=== PATIENT | female | born 2000 | race Caucasian/White ===

== ENCOUNTER → 2019-01-17 | Emergency (ER) | payer BC, OTHER ==
[~2019-01-17] VITALS: Ht 157.5 cm; Wt 81.6 kg
[~2019-01-17] MED LIST: ACHD5005 PO; KETO10TA PO; KETOROLAC 30 MG/ML VIAL IVP ONE; NS IV 1000 ML 1,000 ML IV ONE; ONDANSETRON 4 MG/2 ML (SDV) Z0FRAN IVP ONE; ONDN4T PO; PHEN-640 PO; SULF1TAB35 PO; TAMS0.4C98 PO; fentaNYL INJECTION 100 MCG/2 ML AMP IVP ONE
--- NOTE | 2019-01-17 10:39 | NUR ---
NOTIFIED PT WOULD LIKE SOMETHING FOR NAUSEA AND PAIN.
[2019-01-17 10:44] LABS: BASOPHILS % (AUTO) 1 % (0-10); EOSINOPHILS # (AUTO) 0.1 10^3/uL (0.0-0.3); EOSINOPHILS % (AUTO) 2 % (0-10); HEMATOCRIT 44 % (35-52); HEMOGLOBIN 14.7 G/DL (11.5-16.0); LYMPHOCYTES # (AUTO) 2.4 X 10^3 (1.0-4.0); LYMPHOCYTES % (AUTO) 44 % (12-44); MEAN CORPUSCULAR HEMOGLOBIN 30 PG (25-34); MEAN CORPUSCULAR HGB CONC 34 G/DL (32-36); MEAN CORPUSCULAR VOLUME 88 FL (80-99); MEAN PLATELET VOLUME 10.5 FL (7.4-10.4); MONOCYTES # (AUTO) 0.5 X 10^3 (0.0-1.0); MONOCYTES % (AUTO) 10 % (0-12); NEUTROPHILS # (AUTO) 2.4 X 10^3 (1.8-7.8); NEUTROPHILS % (AUTO) 43 % (42-75); PLATELET COUNT 343 10^3/uL (130-400); RED CELL DISTRIBUTION WIDTH 13.3 % (10.0-14.5); WHITE BLOOD COUNT 5.5 10^3/uL (4.3-11.0)
[2019-01-17 11:11] LABS: ALANINE AMINOTRANSFERASE 29 U/L (0-55); ALBUMIN 4.6 GM/DL (3.2-4.5); ALKALINE PHOSPHATASE 62 U/L (40-136); BILIRUBIN,TOTAL 0.9 MG/DL (0.1-1.0); BUN/CREATININE RATIO 9; CALCIUM 10.4 MG/DL (8.5-10.1); CARBON DIOXIDE 19 MMOL/L (21-32); CHLORIDE 106 MMOL/L (98-107); CREATININE SERUM 0.77 MG/DL (0.60-1.30); GFR ESTIMATED > 60; GLUCOSE 97 MG/DL (70-105); SODIUM 142 MMOL/L (135-145); TOTAL PROTEIN 7.6 GM/DL (6.4-8.2)
[2019-01-17 11:13] LABS: POTASSIUM 3.8 MMOL/L (3.6-5.0)
[2019-01-17 11:25] LABS: CLARITY,URINE SLIGHTLY CLOUDY; COLOR,URINE AMBER; GLUCOSE, URINE (UA) NEGATIVE (NEGATIVE); KETONES,URINE 4+ (NEGATIVE); LEUKOCYTE ESTERASE ,URINE 3+ (NEGATIVE); NITRITE,URINE POSITIVE (NEGATIVE); PH,URINE 5 (5-9); PROTEIN,URINE 3+ (NEGATIVE); UROBILINOGEN,URINE 4 MG/DL (NORMAL)
--- NOTE | 2019-01-17 11:32 | ED Abdominal Pain ---
General Chief Complaint: Abdominal/GI Problems Stated Complaint: RIGHT FLANK PAIN Nursing Triage Note: ARRIVED VIA AMB TO ROOM 09. COMPLAINS OF RIGHT SIDED FLANK PAIN THAT STARTED THIS AM. Source of Information: Patient Exam Limitations: No Limitations History of Present Illness Date Seen by Provider: Jan 17, 2019 Time Seen by Provider: 10:50 Initial Comments 18 year old female who presents to the emergency room with complains of right sided flank pain, nausea, and vomiting that started at 0830 this morning. 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 Timing/Duration: 4-6 Hours Severity/Quality: Sharp, Stabbing Location: Flank (right) Radiation: No Radiation Associated Symptoms: Nausea/Vomiting Allergies and Home Medications Allergies Coded Allergies: No Known Drug Allergies (Unverified , 01/17/19) Home Medications Hydrocodone Bit/Acetaminophen 1 Tab Tab, 1 EACH PO Q6H PRN for PAIN-MODERATE Prescribed by: ABILIO GARCIA on 01/17/19 1201 Ondansetron HCl 4 Mg Tab, 4 MG PO Q4H PRN for NAUSEA/VOMITING-1ST LINE Prescribed by: ABILIO GARCIA on 01/17/19 1201 Sulfamethoxazole/Trimethoprim 1 Each Tablet, 1 EACH PO BID Prescribed by: ABILIO GARCIA on 01/17/19 1201 Patient Home Medication List Home Medication List Reviewed: Yes Review of Systems Review of Systems Constitutional: see HPI; No chills, No fever Gastrointestinal: See HPI, Nausea Genitourinary: See HPI, Flank Pain All Other Systems Reviewed Negative Unless Noted: Yes Past Voqagut-Gntlox-Ganxwk Hx Past Med/Social Hx: Reviewed Nursing Past Med/Soc Hx Patient Social History Recent Foreign Travel: No Contact w/Someone Who Travel: No Recent Infectious Disease Expo: No Recent Hopitalizations: No Seasonal Allergies Seasonal Allergies: No Past Medical History Surgeries: Yes (GASTRIC SLEEVE) Respiratory: No Cardiac: No Neurological: No Female Reproductive Disorders: Polycystic Ovarian Dis Genitourinary: No Gastrointestinal: No Musculoskeletal: No Endocrine: No HEENT: No Cancer: No Family Medical History Reviewed Nursing Family Hx Physical Exam Vital Signs Vital Signs - First Documented 01/17/19 01/17/19 10:20 12:20 Temp 98.0 Pulse 78 Resp 16 B/P (MAP) 138/98 Pulse Ox 98 O2 Delivery Room Air Capillary Refill : Height/Weight/BMI Height: 5'2.00" Weight: 180lbs. oz. 81.226205lm; 28.12 BMI Method:Stated General Appearance: WD/WN, no apparent distress Respiratory: chest non-tender, lungs clear, normal breath sounds, no respiratory distress, no accessory muscle use Cardiovascular: normal peripheral pulses, regular rate, rhythm, no edema, no gallop, no JVD, no murmur Gastrointestinal: normal bowel sounds, non tender, soft, no organomegaly, no pulsatile mass Back: normal inspection, no vertebral tenderness, CVA tenderness (R) Neurologic/Psychiatric: alert, normal mood/affect, oriented x 3 Skin: normal color, warm/dry Progress/Results/Core Measures Results/Orders Lab Results Laboratory Tests Test 01/17/19 10:40 01/17/19 11:20 Range/Units White Blood Count 5.5 4.3-11.0 10^3/uL Red Blood Count 4.93 4.35-5.85 10^6/uL Hemoglobin 14.7 11.5-16.0 G/DL Hematocrit 44 35-52 % Mean Corpuscular Volume 88 80-99 FL Mean Corpuscular Hemoglobin 30 25-34 PG Mean Corpuscular Hemoglobin Concent 34 32-36 G/DL Red Cell Distribution Width 13.3 10.0-14.5 % Platelet Count 343 130-400 10^3/uL Mean Platelet Volume 10.5 H 7.4-10.4 FL Neutrophils (%) (Auto) 43 42-75 % Lymphocytes (%) (Auto) 44 12-44 % Monocytes (%) (Auto) 10 0-12 % Eosinophils (%) (Auto) 2 0-10 % Basophils (%) (Auto) 1 0-10 % Neutrophils # (Auto) 2.4 1.8-7.8 X 10^3 Lymphocytes # (Auto) 2.4 1.0-4.0 X 10^3 Monocytes # (Auto) 0.5 0.0-1.0 X 10^3 Eosinophils # (Auto) 0.1 0.0-0.3 10^3/uL Basophils # (Auto) 0.0 0.0-0.1 10^3/uL Sodium Level 142 135-145 MMOL/L Potassium Level 3.8 3.6-5.0 MMOL/L Chloride Level 106 98-107 MMOL/L Carbon Dioxide Level 19 L 21-32 MMOL/L Anion Gap 17 H 5-14 MMOL/L Blood Urea Nitrogen 7 7-18 MG/DL Creatinine 0.77 0.60-1.30 MG/DL Estimat Glomerular Filtration Rate > 60 BUN/Creatinine Ratio 9 Glucose Level 97 70-105 MG/DL Calcium Level 10.4 H 8.5-10.1 MG/DL Corrected Calcium 8.5-10.1 MG/DL Total Bilirubin 0.9 0.1-1.0 MG/DL Aspartate Amino Transf (AST/SGOT) 26 5-34 U/L Alanine Aminotransferase (ALT/SGPT) 29 0-55 U/L Alkaline Phosphatase 62 40-136 U/L Total Protein 7.6 6.4-8.2 GM/DL Albumin 4.6 H 3.2-4.5 GM/DL Serum Test, Qualitative NEGATIVE NEGATIVE Urine Color MALORIE H Urine Clarity SLIGHTLY CLOUDY Urine pH 5 5-9 Urine Specific Clear 1.030 H 1.016-1.022 Urine Protein 3+ H NEGATIVE Urine Glucose (UA) NEGATIVE NEGATIVE Urine Ketones 4+ H NEGATIVE Urine Nitrite POSITIVE H NEGATIVE Urine Bilirubin 2+ H NEGATIVE Urine Urobilinogen 4 H NORMAL MG/DL Urine Leukocyte Esterase 3+ H NEGATIVE Urine RBC (Auto) 5+ H NEGATIVE Urine RBC TNTC H /HPF Urine WBC 5-10 H /HPF Urine Squamous Epithelial Cells 5-10 /HPF Urine Crystals NONE /LPF Urine Bacteria FEW H /HPF Urine Casts NONE /LPF Urine Mucus NEGATIVE /LPF Urine Culture Indicated YES Micro Results Microbiology 01/17/19 Urine Culture - Final, 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 My Orders Orders - ABILIO GARCIA Fentanyl Injection (Sublimaze Injection (01/17/19 11:15) Ketorolac Injection (Toradol Injection) (01/17/19 11:15) Ct Abd/Pelvis Wo(Kidney Stone) (01/17/19 11:03) Abdomen/Kub 1view (01/17/19 11:03) Saline Lock/Iv-Start (01/17/19 11:03) Ns Iv 1000 Ml (Sodium Chloride 0.9%) (01/17/19 11:03) Hcg,Qualitative Serum (01/17/19 11:14) Iv Push Sped Teacher Ed (01/17/19 ) Medications Given in ED Vital Signs/I&O 01/17/19 01/17/19 10:20 12:20 Temp 98.0 Pulse 78 78 Resp 16 16 B/P (MAP) 138/98 Pulse Ox 98 O2 Delivery Room Air Room Air Progress Progress Note : Time: 11:57 Progress Note I have seen and evaluated the patient. I have informed her of her laboratory and imaging studies. She agrees with plan of care, plans for follow up, return precautions were given. Diagnostic Imaging Diagonstic Imaging: Xray, CT Plain Films/CT/US/NM/MRI: abdomen, pelvis Comments [facility], [place] NAME: ANA PAULA [facility] REC#: [id number] PT STATUS: REG ER : 2000 PHYSICIAN: ABILIO GARCIA ADMIT DATE: 01/17/19/ER Draft Date of Exam:01/17/19 CT ABD/PELVIS WO(KIDNEY STONE) PROCEDURE: CT urinary tract, rule out kidney stone. TECHNIQUE: Multiple contiguous axial images were obtained through the abdomen and pelvis without the use of intravenous contrast. INDICATION: Hematuria with nausea and vomiting and right posterior pain. COMPARISON: No prior studies are available for comparison. FINDINGS: The lung bases are clear. The liver and spleen are unremarkable. There is no biliary duct dilatation. Pancreas and spleen are unremarkable. No adrenal mass is detected. There are punctate nonobstructing calculi in the upper pole of the right kidney. In addition, the right ureter is mildly dilated. This is traced into the pelvis where there is a 1-2 mm distal right ureteric calculus just proximal to the UVJ. A second adjacent calcific density is also seen approximately 2 mm in size, uncertain if this is within or immediately adjacent to the ureter. No bladder calculi are seen. There is an IUD within the uterus. Ovaries are unremarkable. There is no free fluid detected. Bowel loops are normal in caliber. IMPRESSION: 1. Tiny nonobstructing right upper pole renal calculi. In addition, there appears to be a tiny distal right ureteric calculus or two adjacent calculi producing mild hydroureteronephrosis. Dictated on workstation # [id number] Dict: 01/17/19 1140 Trans: 01/17/19 1148 [id number] Interpreted by: LATASHA MARCOS MD Electronically signed by: [facility] [place], [place] NAME: ANA PAULA [facility] REC#: [id number] PT STATUS: REG ER : 2000 PHYSICIAN: ABILIO GARCIA ADMIT DATE: 01/17/19/ER Draft Date of Exam:01/17/19 ABDOMEN/KUB 1VIEW INDICATION: Hematuria with nausea and emesis Overall bowel gas pattern is unremarkable. Note is made of intrauterine device in the pelvis. There is no evidence of pathologic calcification within the abdomen. Surgical suture is seen at the level of the stomach. IMPRESSION: No acute abnormality is identified. No pathologic calcification or bowel obstruction is identified. Dictated on workstation # [id number] Dict: 01/17/19 1145 Trans: 01/17/19 1148 [facility] [id number] Interpreted by: BROOKS ELKINS MD Electronically signed by: Reviewed: Reviewed by Me Departure Impression Primary Impression: Kidney stone Additional Impression: Urinary tract infection Disposition: 01 HOME, SELF-CARE Condition: Stable/Unchanged Departure-Patient Inst. Decision time for Depature: 11:57 Referrals: NO,LOCAL PHYSICIAN (PCP) Primary Care Physician CATHY PACHECO MD Patient Instructions: Kidney Stones (DC) Add. Discharge Instructions: Take medications as directed. Strain all urine and if she should pass a stone take it with you to your follow-up appointment Dr. Pacheco's office. Call today for an appointment time. Return back to the emergency room for worsening symptoms or concerns as needed. Follow-up with your primary care provider as needed. All discharge instructions reviewed with patient and/or family. Voiced understanding. Scripts Ondansetron HCl (Zofran) 4 Mg Tab 4 MG PO Q4H PRN for NAUSEA/VOMITING-1ST LINE, #14 TAB Prov: ABILIO GARCIA 01/17/19 Hydrocodone Bit/Acetaminophen (Hydrocodone/Acetaminophen 5/325mg Tablet) 1 Tab Tab 1 EACH PO Q6H PRN for PAIN-MODERATE MDD 10, #14 TAB Prov: ABILIO GARCIA 01/17/19 Sulfamethoxazole/Trimethoprim (Bactrim Ds Tablet) 1 Each Tablet 1 EACH PO BID for 7 Days, #14 TAB Prov: ABILIO GARCIA 01/17/19 ABILIO GARCIA Jan 17, 2019 11:32
[2019-01-17 11:39] LABS: BACTERIA,URINE FEW /HPF; BILIRUBIN,URINE 2+ (NEGATIVE); RBC,URINE TNTC /HPF
--- NOTE | 2019-01-17 11:48 | Diagnostic Imaging Report ---
INDICATION: Hematuria with nausea and emesis Overall bowel gas pattern is unremarkable. Note is made of intrauterine device in the pelvis. There is no evidence of pathologic calcification within the abdomen. Surgical suture is seen at the level of the stomach. IMPRESSION: No acute abnormality is identified. No pathologic calcification or bowel obstruction is identified. Dictated by: Dictated on workstation # [id number]
--- NOTE | 2019-01-17 11:49 | Diagnostic Imaging Report ---
PROCEDURE: CT urinary tract, rule out kidney stone. TECHNIQUE: Multiple contiguous axial images were obtained through the abdomen and pelvis without the use of intravenous contrast. INDICATION: Hematuria with nausea and vomiting and right posterior pain. COMPARISON: No prior studies are available for comparison. FINDINGS: The lung bases are clear. The liver and spleen are unremarkable. There is no biliary duct dilatation. Pancreas and spleen are unremarkable. No adrenal mass is detected. There are punctate nonobstructing calculi in the upper pole of the right kidney. In addition, the right ureter is mildly dilated. This is traced into the pelvis where there is a 1-2 mm distal right ureteric calculus just proximal to the UVJ. A second adjacent calcific density is also seen approximately 2 mm in size, uncertain if this is within or immediately adjacent to the ureter. No bladder calculi are seen. There is an IUD within the uterus. Ovaries are unremarkable. There is no free fluid detected. Bowel loops are normal in caliber. IMPRESSION: 1. Tiny nonobstructing right upper pole renal calculi. In addition, there appears to be a tiny distal right ureteric calculus or two adjacent calculi producing mild hydroureteronephrosis. Dictated by: Dictated on workstation # [id number]
== END | disposition home or self-care (01) ==
LOC: ER 10:20
DX: N13.6 Pyonephrosis (principal); Z98.84 Bariatric surgery status; Z87.448 Personal history of other diseases of urinary system
CPT/HCPCS: 36415; 74018; 74176; 80053; 81000; 84703; 85025; 87077; 87088; 96374; 96375

== ENCOUNTER 2019-01-20 14:49 | Outpatient (CLI) | payer BC ==
[~2019-01-20] VITALS: Ht 157.5 cm; Wt 81.6 kg
[~2019-01-20 14:49] MED LIST changes: -KETO10TA PO; -PHEN-640 PO; -TAMS0.4C98 PO
[2019-01-21] MEDS ORDERED: PHEN-640 PO (09:12)
[2019-01-21] MEDS ORDERED: KETO10TA PO (09:12)
[2019-01-21] MEDS ORDERED: TAMS0.4C98 PO (09:12)
== END 2019-01-20 15:20 ==
LOC: PREOP 14:49
PROVIDERS: ATTEND Urology
DX: Z01.818 Encounter for other preprocedural examination (principal)

== ENCOUNTER → 2019-01-20 | Outpatient (CLI) | payer BC ==
[~2019-01-20] MED LIST changes: -KETOROLAC 30 MG/ML VIAL IVP ONE; -NS IV 1000 ML 1,000 ML IV ONE; -ONDANSETRON 4 MG/2 ML (SDV) Z0FRAN IVP ONE; -fentaNYL INJECTION 100 MCG/2 ML AMP IVP ONE
--- NOTE | 2019-01-20 18:32 | Diagnostic Imaging Report ---
INDICATION: Nephrolithiasis. Comparison made with prior examination from 01/17/2019. Two views were obtained. FINDINGS: The bowel gas pattern is nonspecific. No definitive abnormal calcifications are appreciated. There is an IUD in place. Osseous structures are unremarkable. IMPRESSION: No evidence of radiopaque calculi projected over either kidney or the expected course of either ureter. Dictated by: Dictated on workstation # [id number]
== END ==
LOC: RAD 12:55
PROVIDERS: ATTEND Urology
DX: N20.0 Calculus of kidney (principal)
CPT/HCPCS: 74018

== ENCOUNTER 2019-01-21 06:26 | Day surgery (SDC) | payer BC ==
[~2019-01-21] VITALS: Ht 157.5 cm; Wt 81.6 kg
[2019-01-21] MEDS ORDERED: cefTRIAXone FOR IV USE 1,000 MG in WATER (STERILE) FOR INJECTION 10 ML IV ONE (06:45)
[2019-01-21] MEDS ORDERED: LIDOCAINE PF 2% 5 ML (XYLOCAINE) VIAL ONE (06:58)
[2019-01-21] MEDS ORDERED: DEXAMETHASONE 10 MG/ML (DECADRON) 1 ML VIAL ONE (06:58)
[2019-01-21] MEDS ORDERED: ONDANSETRON 4 MG/2 ML (SDV) Z0FRAN ONE (06:58)
[2019-01-21] MEDS ORDERED: proPOfol 200 MG/20 ML (DIPRIVAN) VIAL IV ONE (06:58)
[2019-01-21] MEDS ORDERED: ROCURONIUM 10 MG/ML 5 ML SYRINGE IV ONE (06:58)
[2019-01-21] MEDS ORDERED: fentaNYL INJECTION 100 MCG/2 ML AMP ONE (06:59)
[2019-01-21] MEDS ORDERED: MIDAZOLAM 2 MG/2 ML (VERSED) VIAL ONE (06:59)
[2019-01-21 07:00] VITALS: BP 111/79
[2019-01-21] MEDS ORDERED: CATHETER FLUSH 10 ML SYR IV PRN (07:00)
[2019-01-21] MEDS ORDERED: LACTATED RINGERS 1,000 ML IV PRN (07:01)
[2019-01-21] MEDS ORDERED: SEVOFLURANE (ULTANE) 15 ML INHAL SOLN ONE (07:07)
[2019-01-21] MEDS ORDERED: FAMOTIDINE 20MG/2ML IV (PEPCID) IV ONE (07:15)
--- NOTE | 2019-01-21 07:32 | Diagnostic Imaging Report ---
INDICATION: Preop ureteral stone FINDINGS: IUD device present. I cannot identify a radiodense ureteral stone. Punctate calcification at the distal right ureter seen on CT 4 days earlier is likely too small to be radiographically apparent. IMPRESSION: No radiographically appreciable abnormality Dictated by: Dictated on workstation # [id number]
[2019-01-21] MEDS ORDERED: SUCCINYLCHOLINE INJ 100 MG/5 ML SYR ONE (07:59)
[2019-01-21] MEDS ORDERED: GLYCOPYRROLATE 0.2 MG/ML (ROBINUL) 2 ML VIAL ONE ×2 (07:59→08:07)
[2019-01-21] MEDS ORDERED: NEOSTIGMINE 1 MG/ML 5 ML SYRINGE ONE (07:59)
--- NOTE | 2019-01-21 08:29 | Progress Note-Post Operative ---
Post-Operative Progess Note Surgeon (s)/Sap Mobility Architect (s) Surgeon CATHY PACHECO MD Sap Mobility Architect: NONE Pre-Operative Diagnosis RIGHT URETERAL STONE Post-Operative Diagnosis SAME Procedure & Operative Findings Date of Procedure 01/21/19 Procedure Performed/Findings RT URETEROSCOPY AND INSERTION OF RT URETERAL STENT Anesthesia Type GENERAL Estimated Blood Loss Estimated blood loss (mL): NONE Specimens/Packing Specimens Removed NONE Packing: NONE CATHY PACHECO MD Jan 21, 2019 08:29
--- NOTE | 2019-01-21 08:30 | Progress Note-Pre Operative ---
Pre-Operative Progress Note H&P Reviewed The H&P was reviewed, patient examined and no changes noted. Date Seen by Provider: Jan 21, 2019 Time Seen by Provider: 08: Date H&P Reviewed: Jan 21, 2019 Time H&P Reviewed: 08:29 Pre-Operative Diagnosis: RT URETERAL STONE CATHY PACHECO MD Jan 21, 2019 08:30
--- NOTE | 2019-01-21 08:31 | Discharge Inst-Urology ---
Discharge Inst-Urology Discharge Medications New, Converted, or Re-newed RX: RX on Chart Patient Instructions/Follow Up Plan Please make appointment to been seen in office next weeks for cysto and removal of stent Increase oral fluids for 48 hours and then as needed. Diet and Activity as tolerated. If questions or concerns contact your physician Or seek help at emergency department. CATHY PACHECO MD Jan 21, 2019 08:31
[2019-01-21] MEDS ORDERED: morphine INJ 10 MG/ML 1ML (SYR OR VIAL) IVP ONE (08:45)
[2019-01-21] MEDS ORDERED: ONDANSETRON 4 MG/2 ML (SDV) Z0FRAN IVP PRN (08:45)
[2019-01-21 09:00] VITALS: BP 109/75
[2019-01-21] MEDS ORDERED: TAMS0.4C98 PO (09:12)
[2019-01-21] MEDS ORDERED: KETO10TA PO (09:12)
[2019-01-21] MEDS ORDERED: PHEN-640 PO (09:12)
--- NOTE | 2019-01-21 09:14 | Anesthesia-General Post-Op ---
General Patient Condition Mental Status/LOC: Same as Preop Cardiovascular: Satisfactory Nausea/Vomiting: Absent Respiratory: Satisfactory Pain: Controlled Complications: Absent Post Op Complications Complications None Follow Up Care/Instructions Patient Instructions None needed. Anesthesia/Patient Condition Patient Condition Patient is doing well, no complaints, stable vital signs, no apparent adverse anesthesia problems. No complications reported per nursing. OMAR AJ CRNA Jan 21, 2019 09:14
[2019-01-21 09:30] VITALS: BP 90/50
[2019-01-21] MEDS ORDERED: PHENAZOPYRIDINE 100 MG (PYRIDIUM) TABLET ONE (09:39)
[2019-01-21 10:00] VITALS: BP 87/54
[2019-01-21] MEDS ORDERED: PHENAZOPYRIDINE 100 MG (PYRIDIUM) TABLET PO ONE (10:00)
[2019-01-21 10:20] VITALS: BP 87/54
--- NOTE | 2019-01-21 13:24 | Diagnostic Imaging Report ---
INDICATION: Evaluate stent placement. FINDINGS: A right nephroureteral stent is in place. It appears to be in satisfactory position. The bowel gas pattern is nonspecific. There is an IUD in place. IMPRESSION: Interval placement of a double-J ureteral stent which appears to be in satisfactory position. Dictated by: Dictated on workstation # [id number]
--- NOTE | 2019-01-21 14:40 | OPERATIVE REPORT ---
DATE OF SERVICE: 01/21/2019 PREOPERATIVE DIAGNOSIS: Right distal ureteral stone. POSTOPERATIVE DIAGNOSIS: Right distal ureteral stone. OPERATION PERFORMED: Right ureteroscopy and insertion of right stent. SURGEON: Amandeep Pacheco MD. ANESTHESIA: General. COMPLICATIONS: None. DESCRIPTION OF PROCEDURE: Under satisfactory general anesthesia, the patient in lithotomy position, genitalia were prepped and draped in usual sterile fashion. Cystoscope was introduced in the bladder that was essentially normal except for a sluggish efflux on the right side. Using the foroblique lens, I slightly dilated the right ureteral orifice intramural portion to accommodate a 6.9 Kazakh semirigid ureteroscope; however, I could not get to the level of the stone because the ureter was kind of tight and I did not want to force the issue, so I removed the ureteroscope. I passed a 6-Kazakh 24 cm double-J stent and I could feel the stone and I believe I disimpacted it from the wall of the ureter. I continued to pass the stent all the way up to the right renal pelvis guiding fluoroscopically. I removed the guidewire and the stent was seen draining nicely proximally, fluoroscopically and distally endoscopically. Bladder was evacuated and cystoscope was removed. The patient tolerated the procedure and anesthesia well and was sent to recovery room in stable condition. PLAN: Since the stone is not very well visualized ESWL may not the best way to proceed, I would thus recommend to the patient postop to leave the stent for a week or so. Hopefully, she will pass the stone around it since this is a very small stone or we will take the stone out in a week at the office and then see if she passes the stone or no. If she fails to do so then the option would be either ESWL or a flexible ureteroscopy at or a place of her choice. We will discuss this with the patient when she is fully awake. Job ID: [id number] DocumentID: [id number] Dictated Date: 01/21/2019 08:35:18 Petroleum Products Sales Representative Date: 01/21/2019 13:32:50 Dictated By: AMANDEEP PACHECO MD
== END 2019-01-21 11:20 | disposition home or self-care (01) ==
LOC: SDC 06:26
PROVIDERS: ATTEND Urology
DX: N20.1 Calculus of ureter (principal); K21.9 Gastro-esophageal reflux disease without esophagitis; Z98.84 Bariatric surgery status
CPT/HCPCS: 74018; 84703; 87081

== ENCOUNTER 2019-01-28 15:20 | Outpatient (CLI) | payer BC ==
[~2019-01-28] VITALS: Ht 157.5 cm; Wt 81.6 kg
[~2019-01-28 15:20] MED LIST changes: -NITR-65 PO
[2019-01-29] MEDS ORDERED: NITR-65 PO (10:58)
== END 2019-01-28 15:46 ==
LOC: PREOP 15:20
PROVIDERS: ATTEND Urology
DX: Z01.818 Encounter for other preprocedural examination (principal)

== ENCOUNTER → 2019-01-28 | Outpatient (CLI) | payer BC ==
[~2019-01-28] MED LIST changes: +KETO10TA PO; +NITR-65 PO; +PHEN-640 PO; +TAMS0.4C98 PO
--- NOTE | 2019-01-28 16:50 | Diagnostic Imaging Report ---
INDICATION: Left-sided ureteral stone. TECHNIQUE: Single supine view of the abdomen 2:08 PM CORRELATION STUDY: 01/21/2019 FINDINGS: Right ureteral stents unchanged as to positioning. Slight change in orientation in the distal loop. No definitive calcification along expected course of the right ureter. Mild severity fecal retention is noted. No evidence for fecal impaction or bowel obstruction. Intrauterine contraceptive device is present. IMPRESSION: 1. Right ureteral stent is present. Dictated by: Dictated on workstation # [id number]
== END ==
LOC: RAD 13:56
PROVIDERS: ATTEND Urology
DX: N20.1 Calculus of ureter (principal); Z96.0 Presence of urogenital implants
CPT/HCPCS: 74018

== ENCOUNTER 2019-01-29 07:27 | Day surgery (SDC) | payer BC ==
[~2019-01-29] VITALS: Ht 157.5 cm; Wt 81.6 kg
[2019-01-29 07:34] VITALS: BP 105/75
--- NOTE | 2019-01-29 07:39 | Progress Note-Pre Operative ---
Pre-Operative Progress Note H&P Reviewed The H&P was reviewed, patient examined and no changes noted. Date Seen by Provider: Jan 29, 2019 Time Seen by Provider: 07:38 Date H&P Reviewed: Jan 29, 2019 Time H&P Reviewed: 07:39 Pre-Operative Diagnosis: RT URETERAL STONE CATHY PACHECO MD Jan 29, 2019 07:39
--- NOTE | 2019-01-29 07:40 | Progress Note-Post Operative ---
Post-Operative Progess Note Surgeon (s)/Ground Crew Linesman (s) Surgeon CATHY PACHECO MD Ground Crew Linesman: NONE Pre-Operative Diagnosis RT URETERAL STONE Post-Operative Diagnosis SAME Procedure & Operative Findings Date of Procedure 01/29/19 Procedure Performed/Findings CYSTOSCOPY WITH REMOVAL OF STENT, RT URETEROSCOPY WITH STONE LITHOTRIPSY Anesthesia Type GENERAL Estimated Blood Loss Estimated blood loss (mL): NONE Specimens/Packing Specimens Removed NONE Packing: NONE CATHY PACHECO MD Jan 29, 2019 07:40
[2019-01-29] MEDS ORDERED: cefTRIAXone FOR IV USE 1,000 MG in WATER (STERILE) FOR INJECTION 10 ML IV ONE (08:00)
[2019-01-29] MEDS ORDERED: FAMOTIDINE 20MG/2ML IV (PEPCID) IV ONE (08:00)
[2019-01-29] MEDS ORDERED: DEXAMETHASONE 10 MG/ML (DECADRON) 1 ML VIAL ONE (08:02)
[2019-01-29] MEDS ORDERED: proPOfol 200 MG/20 ML (DIPRIVAN) VIAL IV ONE (08:02)
[2019-01-29] MEDS ORDERED: ONDANSETRON 4 MG/2 ML (SDV) Z0FRAN ONE (08:02)
[2019-01-29] MEDS ORDERED: SEVOFLURANE (ULTANE) 15 ML INHAL SOLN ONE (08:02)
[2019-01-29] MEDS ORDERED: LIDOCAINE PF 2% 5 ML (XYLOCAINE) VIAL ONE (08:02)
[2019-01-29] MEDS ORDERED: MIDAZOLAM 2 MG/2 ML (VERSED) VIAL ONE (08:03)
[2019-01-29] MEDS ORDERED: fentaNYL INJECTION 100 MCG/2 ML AMP ONE (08:03)
--- NOTE | 2019-01-29 08:16 | Diagnostic Imaging Report ---
INDICATION: Preop for right ureteral stone. Time of exam 7:45 AM Correlation is made with prior exam one day earlier. IUD is noted in the midline of the pelvis. Right-sided double-J nephroureteral stent remains in place. No definite radiopaque urinary tract calculi are detected. Bowel gas pattern is unremarkable. IMPRESSION: Stable KUB. Dictated by: Dictated on workstation # [id number]
[2019-01-29] MEDS: LACTATED RINGERS 1,000 ML IV PRN ×2 (08:31→09:55)
[2019-01-29] MEDS ORDERED: ROCURONIUM 10 MG/ML 5 ML SYRINGE IV ONE (08:41)
[2019-01-29] MEDS ORDERED: GLYCOPYRROLATE 0.2 MG/ML (ROBINUL) 2 ML VIAL ONE (09:06)
[2019-01-29] MEDS ORDERED: NEOSTIGMINE 1 MG/ML 5 ML SYRINGE ONE (09:06)
--- NOTE | 2019-01-29 09:24 | Discharge Inst-Urology ---
Discharge Inst-Urology Discharge Medications New, Converted, or Re-newed RX: RX on Chart Patient Instructions/Follow Up Plan Please make appointment to been seen in office in 2 weeks. Increase oral fluids for 48 hours and then as needed. Diet and Activity as tolerated. If questions or concerns contact your physician Or seek help at emergency department. CATHY PACHECO MD Jan 29, 2019 09:24
[2019-01-29] MEDS ORDERED: KETOROLAC 30 MG/ML VIAL IVP ONE (09:30)
[2019-01-29] MEDS ORDERED: ONDANSETRON 4 MG/2 ML (SDV) Z0FRAN IVP PRN (09:45)
[2019-01-29] MEDS ORDERED: morphine INJ 10 MG/ML 1ML (SYR OR VIAL) IVP ONE (09:45)
[2019-01-29 10:30] VITALS: BP 91/62
--- NOTE | 2019-01-29 10:50 | OPERATIVE REPORT ---
DATE OF SERVICE: 01/29/2019 PREOPERATIVE DIAGNOSIS: Right distal ureteral stone. POSTOPERATIVE DIAGNOSIS: Right distal ureteral stone. OPERATION PERFORMED: Cystoscopy, removal of right stent, right ureteroscopy with stone lithotripsy. SURGEON: Amandeep Pacheco MD ANESTHESIA: General. COMPLICATIONS: None. PROCEDURE IN DETAIL: Under satisfactory general anesthesia, the patient in lithotomy position, genitalia were prepped and draped in the usual sterile fashion. Cystoscope was introduced under vision. The distal end of the stent was visualized. It was grasped with grasping forceps and removed in toto. The ureteroscope was then inserted into the right ureteral orifice up to the level of the stone that was seen now in the mid ureter and it was completely fragmented with lithoclast. Fragments were flowing down the bladder. I went proximal to the stone. There were no further calcifications or fragments. I went down with ureteroscope and removed it, reinserted the cystoscope to empty the bladder. The patient tolerated the procedure and anesthesia well and was sent to recovery room in stable condition. PLAN: When we will see her back in 2 weeks, we will do a stone risk profile. We already did a renal stone profile, so we can put her on management to prevent recurrence. Job ID: [id number] DocumentID: [id number] Dictated Date: 01/29/2019 09:27:54 Granite Sandblaster Apprentice Date: 01/29/2019 10:49:05 Dictated By: AMANDEEP PACHECO MD
[2019-01-29] MEDS ORDERED: NITR-65 PO (10:58)
[2019-01-29 11:00] VITALS: BP 88/63
[2019-01-29 11:30] VITALS: BP 99/68
[2019-01-29 11:34] VITALS: BP 99/68
--- NOTE | 2019-01-29 11:34 | NUR ---
ALERT, CHEERFUL, DENIES COMPLAINTS AND REQUESTING DISMISSAL. TAKING PO FLUIDS WITHOUT PROBLEM, VOIDED CLEAR LIGHT PINK URINE. MACROBID SCRIPT CALLED TO [facility], [place], [place]
--- NOTE | 2019-01-29 14:31 | Anesthesia-General Post-Op ---
General Patient Condition Mental Status/LOC: Same as Preop Cardiovascular: Satisfactory Nausea/Vomiting: Absent Respiratory: Satisfactory Pain: Controlled Complications: Absent Post Op Complications Complications None Follow Up Care/Instructions Patient Instructions None needed. Anesthesia/Patient Condition Patient Condition Patient was seen after the procedure and she was doing well, no complaints, stable vital signs, no apparent adverse anesthesia problems. YIN DELGADILLO DO Jan 29, 2019 14:31
== END 2019-01-29 11:34 | disposition home or self-care (01) ==
LOC: SDC 07:27
PROVIDERS: ATTEND Urology
DX: N20.1 Calculus of ureter (principal); Z11.2 Encounter for screening for other bacterial diseases; E66.9 Obesity, unspecified; K21.9 Gastro-esophageal reflux disease without esophagitis; Z68.32 Body mass index [BMI] 32.0-32.9, adult; Z98.84 Bariatric surgery status
CPT/HCPCS: 74018; 84703; 87081

== ENCOUNTER 2020-08-13 05:42 | Emergency (ER) | payer BC ==
[~2020-08-13] VITALS: Ht 158 cm; Wt 61.3 kg
[~2020-08-13 05:42] MED LIST changes: +NITR-65 PO; -TAMS0.4C98 PO; +TMSL.4C PO
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
[2020-08-13 06:12] LABS: BILIRUBIN,URINE NEGATIVE (NEGATIVE); CLARITY,URINE CLOUDY; COLOR,URINE YELLOW; GLUCOSE, URINE (UA) NEGATIVE (NEGATIVE); KETONES,URINE NEGATIVE (NEGATIVE); LEUKOCYTE ESTERASE ,URINE 3+ (NEGATIVE); NITRITE,URINE POSITIVE (NEGATIVE); PROTEIN,URINE 2+ (NEGATIVE)
[2020-08-13] MEDS ORDERED: TETANUS,DIPTH,PERTUSS P/F (BOOSTRIX) 0.5 ML VIAL IM ONE (06:15)
--- NOTE | 2020-08-13 06:15 | NUR ---
left knee abraision cleaned with antibacterial soap & sterile water.
[2020-08-13 06:22] LABS: AMPHETAMINE SCREEN, URINE POSITIVE (NEGATIVE); BARBITURATE SCREEN URINE NEGATIVE (NEGATIVE); BENZODIAZEPINES SCREEN URINE NEGATIVE (NEGATIVE); CANNABINOID SCREEN, URINE NEGATIVE (NEGATIVE); COCAINE SCREEN URINE NEGATIVE (NEGATIVE); METHADONE STAT NEGATIVE (NEGATIVE); METHAMPHETAMINE SCREEN URINE S NEGATIVE (NEGATIVE); OPIATE SCREEN URINE NEGATIVE (NEGATIVE); OXYCODONE STAT NEGATIVE (NEGATIVE); PROPOXYPHENE STAT NEGATIVE (NEGATIVE); TRICYCLIC ANTIDEPRESSANTS SCRE NEGATIVE (NEGATIVE)
[2020-08-13 06:23] LABS: BACTERIA,URINE MODERATE /HPF; TRICHOMONAS,URINE MODERATE /HPF; WBC,URINE TNTC /HPF
--- NOTE | 2020-08-13 06:26 | NUR ---
pt refused blood draw. erp notified.
--- NOTE | 2020-08-13 07:26 | Diagnostic Imaging Report ---
Indication: Lacerations. Findings: No fracture or retained opaque foreign body at 3 view left foot. Impression: Negative. Dictated by: Dictated on workstation # [id number]
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
--- NOTE | 2020-08-13 07:28 | Diagnostic Imaging Report ---
Indication: Trauma. Findings: Two views left femur showed no fracture or dislocation. No retained opaque foreign body. An IUD device in the midline pelvis noted. Impression: No acute-appearing abnormality. Dictated by: Dictated on workstation # [id number]
[2020-08-13] MEDS ORDERED: MUPI22OI2 TP (07:42)
[2020-08-13] MEDS ORDERED: NITR-65 PO (07:42)
[2020-08-13 08:14] VITALS: BP 110/74
== END 2020-08-13 08:10 | disposition home or self-care (01) ==
LOC: EDUNIT# 05:42 → ER 05:47
DX: S80.212A Abrasion, left knee, initial encounter (principal); S09.90XA Unspecified injury of head, initial encounter; R40.2410 Glasgow coma scale score 13-15, unspecified time; N39.0 Urinary tract infection, site not specified; Z23 Encounter for immunization; V89.2XXA Person injured in unspecified motor-vehicle accident, traffic, initial encounter
CPT/HCPCS: 70450; 72125; 72170; 73552; 73562; 73590; 73630; 80306; 81000; 84703; 87077; 87088; 87186; 90715